=== PATIENT | female | born 1990 | race Caucasian/White ===

== ENCOUNTER 2016-05-22 09:31 | Emergency (ER) | payer OTHER ==
[~2016-05-22] VITALS: Wt 74.5 kg
[~2016-05-22 09:31] MED LIST: ACET500C5 PO; AMO500 PO; AZIT250T94 PO; CETI10CA PO; CODE118S PO; IBUP-1542 PO; IBUP800T25 PO; OSLT75C PO; PRED20TA PO; PROM6.25 PO; UDPVCC PO; UDROBDM PO
[2016-05-22] MEDS ORDERED: IBUP-1542 PO (10:23)
[2016-05-22] MEDS ORDERED: AZIT250T94 PO (10:23)
[2016-05-22] MEDS ORDERED: CETI10CA PO (10:24)
--- NOTE | 2016-05-22 13:30 | ERD ---
ER Documentation Chief Complaint Date/Time DATE: 05/22/16 TIME: 13:26 Chief Complaint cough and runny nose for the past few hours. no distress. HPI Patient is a 25-year-old female who presents to the ED with cough, sore throat, runny nose and congestion for 1 day. 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 She has had tactile fevers at home. She denies headache, neck pain, neck stiffness. She has not taken any medication for her symptoms. She denies abdominal pain, nausea, vomiting, diarrhea or constipation. She states she is up-to-date with her vaccinations. She has no other complaints. ROS All systems reviewed and are negative except as per history of present illness. Medications Home Meds Active Scripts Cetirizine Hcl* (Zyrtec*) 10 Mg Capsule, 10 MG PO DAILY, #30 TAB.CHEW Prov:RUY COLLINS PA-C 05/22/16 Ibuprofen* (Motrin*) 600 Mg Tab, 600 MG PO Q6, #30 TAB Prov:RUY COLLINS PA-C 05/22/16 Azithromycin* (Zithromax*) 250 Mg Tablet, 250 MG PO .ZPACK DIRECTED, #6 TAB TAKE 500 MG (2 TABS) THE FIRST DAY THEN 250 MG (1 TAB) DAYS 2-5 Prov:RUY COLLINS PA-C 05/22/16 Cetirizine Hcl* (Zyrtec*) 10 Mg Capsule, 10 MG PO DAILY, #10 TAB.CHEW Prov:FELIPE POLO PA-C 01/29/16 Guaifenesin-Dextromethorphan* (Robitussin* DM) 100MG/10MG/5ML Syrup, 10 ML PO Q4H Y for COUGH for 7 Days, ML Prov:FELIPE POLO PA-C 01/29/16 Acetaminophen* (Tylophen*) 500 Mg Capsule, 2 CAP PO Q8H Y for PAIN AND OR ELEVATED TEMP, #30 CAP Prov:FELIPE POLO PA-C 01/29/16 Ibuprofen* (Motrin*) 800 Mg Tab, 800 MG PO Q6, #30 TAB Prov:FELIPE POLO PA-C 01/29/16 Prednisone* (Prednisone*) 20 Mg Tab, 40 MG PO DAILY for 5 Days, TAB Prov:CLAYTON COX NP 08/03/15 Promethazine w/Codeine* (Phenergan w/Codeine* Syrup) 5 Ml Syrup, 5 ML PO Q4H Y for COUGH, #4 OZ Prov:AD VILLARREAL PA-C 07/16/15 Azithromycin* (Zithromax*) 250 Mg Tablet, 250 MG PO .ZPACK DIRECTED, #6 TAB TAKE 500 MG (2 TABS) THE FIRST DAY THEN 250 MG (1 TAB) DAYS 2-5 Prov:DA VILLARREAL PA-C 07/16/15 Oseltamivir Phosphate* (Tamiflu*) 75 Mg Capsule, 75 MG PO BID for 5 Days, CAP Prov:TULIO KHAN MD 07/06/15 Ibuprofen* (Motrin*) 600 Mg Tab, 600 MG PO Q6H Y for PAIN, #16 TAB Prov:TULIO KHAN MD 07/06/15 Promethazine w/Codeine (Phenergan w/Codeine Syrup) 5 Ml Syrup, 5 ML PO Q6 Y for COUGH for 7 Days, ML 6 ounces Prov:TULIO KHAN MD 07/06/15 Guaifenesin-Dextromethorphan* (Robitussin* DM) 100MG/10MG/5ML Syrup, 5 ML PO Q4H Y for COUGH, #10 ML Prov:ANDREW LYNCH DO 04/21/15 Amoxicillin* (Amoxicillin*) 500 Mg Cap, 500 MG PO TID for 7 Days, CAP Prov:ANDREW LYNCH DO 04/21/15 Phenylephrine Jlc-Ijswurl-Dnxklihkhill* (Promethazine VC Codeine* Syrup) 120 Ml Syrup, 5 ML PO Q6 Y for COUGH, #4 OZ Prov:STANLEY ROSALES PA-C 02/13/15 Ibuprofen* (Motrin*) 600 Mg Tab, 600 MG PO Q6, #15 TAB Prov:TULIO KHAN MD 02/02/15 Azithromycin* (Zithromax*) 250 Mg Tablet, 250 MG PO .ZPACK DIRECTED, #6 TAB TAKE 500 MG (2 TABS) THE FIRST DAY THEN 250 MG (1 TAB) DAYS 2-5 Prov:TULIO KHAN MD 02/02/15 Allergies Allergies: Coded Allergies: No Known Allergy (Unverified , 05/22/16) PMhx/Soc History of Surgery: Yes (ERCP 08) Anesthesia Reaction: No Hx Neurological Disorder: No Hx Respiratory Disorders: No Hx Cardiac Disorders: No Hx Psychiatric Problems: No Hx Miscellaneous Medical Probl: Yes (Pancreatitis, 2016) Hx Alcohol Use: No Hx Substance Use: No Hx Tobacco Use: No Smoking Status: Never smoker FmHx Family History: No coronary disease, No diabetes, No other Physical Exam Vitals Vital Signs Date Time Temp Pulse Resp B/P Pulse Ox O2 Delivery O2 Flow Rate FiO2 05/22/16 09:34 98.4 112 20 132/84 98 Physical Exam GENERAL: Well-developed, well-nourished female. Appears in no acute distress. HEAD: Normocephalic, atraumatic. EYES: Pupils are equally reactive bilaterally. EOMs grossly intact. No conjunctival erythema. ENT: Moist mucous membranes. No uvula deviation. No kissing tonsils. No exudates. Bilateral TMs clear with no erythema or drainage. No mastoid tenderness NECK: Supple. No lymphadenopathy or thyromegaly. No meningismus. negative kernig. negative brudinski. LUNG: Clear to auscultation bilaterally. No rhonchi, wheezing, rales or coarse breath sounds. HEART: Regular rate and rhythm. No murmurs, rubs or gallops. Extremities: Equal pulses bilaterally. No peripheral clubbing, cyanosis or edema. No unilateral leg swelling. NEUROLOGIC: Alert and oriented. Moving all four extremities. 5/5 strength in all extremities. Normal speech. Steady gait. SKIN: Normal color. Warm and dry. No rashes or lesions. Capillary refill < 2 seconds Procedures/MDM ER COURSE: I kept the patient and/or family informed of laboratory and diagnostic imaging results throughout the emergency room course. MEDICAL DECISION MAKING: This is a 25-year-old female who presents with fever, cough, sore throat and congestion 1 day. Vital signs were reviewed. Patient is afebrile. Patient is not hypoxic. Patient pulse is 112, likely stress reaction. Patient is seen coughing in the exam room. I do not think a chest x-ray is warranted at this time as her lung examination is within normal limits and she does not show signs of respiratory distress. Patient likely has URI of viral versus bacterial etiology. Low suspicion for pneumonia, PE, pneumothorax, ACS, epiglottitis, obstruction, TB, pertussis, meningitis, sepsis. Low suspicion for peritonsillar abscess, strep pharyngitis, mononucleosis, dental abscess DISCHARGE: At this time, patient is stable for discharge and outpatient management with no new complaints during the ER course. Patient was sent home with Zyrtec, Motrin, azithromycin and a note for work.. Patient will be discharged home with instructions to recheck for new or worsening symptoms such as fever, nausea, weakness, LOC and to follow up with primary care in the next 1-2 days. Patient was advised to return to the ER for any new or worsening symptoms. Plan was discussed and patient and/or family understands and agrees. Home instructions were given. Departure Diagnosis: Primary Impression: URI, acute Condition: Stable Patient Instructions: Uri, Viral, No Abx (Adult) Additional Instructions: Call your primary care doctor TOMORROW for an appointment during the next 1-2 days.See the doctor sooner or return here if your condition worsens before your appointment time. RUY COLLINS PA-C May 22, 2016 13:29
== END 2016-05-22 10:30 | disposition home or self-care (01) ==
LOC: FTE 09:31
DX: J06.9 Acute upper respiratory infection, unspecified (principal)
CPT/HCPCS: 99283